=== PATIENT | female | born 1975 | race Caucasian/White ===

== ENCOUNTER 2018-06-14 07:49 | Outpatient (CLI) | payer OTHER ==
--- NOTE | 2018-06-14 12:40 | MRI Report ---
Reason: LOCALIZED SWELLING, MASS AND LUMP, RIGHT UPPER WOLFE Procedure Date: 06/14/2018 Accession Number: [id number] / [id number] Procedure: MRI - Finger(s) RT W/O CPT Code: 02592 FULL RESULT: EXAM: RIGHT THUMB MRI WITHOUT CONTRAST EXAM DATE: 06/14/2018 08:44 AM. CLINICAL HISTORY: Localized swelling/mass. COMPARISON: None. TECHNIQUE: Multiplanar, multisequence T1-weighted and fluid-sensitive sequences of the thumb without contrast. Other: None. FINDINGS: Bones: No fractures or subluxations. No marrow edema. No bone lesions. Cartilage: The articular cartilage is unremarkable. Ligaments: The radial and ulnar collateral ligaments are intact. Tendons: The flexor and extensor tendons are unremarkable. The adductor pollicis insertion is normal. Musculature: No edema or fatty atrophy. Other: No joint effusions or capsular rupture. The marker indicating the site of the palpable abnormality is on the ulnar side of the thumb at the level of the proximal phalanx. No mass is identified in that location on this noncontrast MRI. IMPRESSION: No mass seen on noncontrast MRI. [facility] MUSCULOSKELETAL RADIOLOGY SECTION
== END 2018-06-14 07:50 | disposition home or self-care (01) ==
LOC: DI 07:49
PROVIDERS: ATTEND Orthopaedic Surgery
DX: R22.31 Localized swelling, mass and lump, right upper limb (principal)

== ENCOUNTER 2019-08-01 13:20 | Outpatient (CLI) | payer OTHER ==
[2019-08-01 14:56] VITALS: BP 121/89
--- NOTE | 2019-08-01 14:56 | SLEEP CARE CONSULTATION ---
Information from patient questionnaire entered by Precious Handy. I have reviewed and concur with the information entered by Precious Handy. This document represents the service I personally performed and the decisions made by me, Bethany Negron MD, [facility]. History of Present Illness Reason for Visit: New patient Chief Complaint: reports: Unrefreshed sleep, Snoring, Observed pauses in breathing Duration of Symptoms: 20 years Usual bedtime: 9 pm Time it takes to fall asleep: a few minutes Snores at night: Yes Observed to quit breathing while asleep: Yes Sleeps alone due to snoring: No Number of times waking at night: 1 Reasons for waking at night: reports: Choking (sometimes), Snoring (sometimes), Bathroom Toss, Turn, or Twitch while sleeping: Yes Recalls having dreams: Yes Usually gets out of bed at: 5:45 am Feels refreshed in the morning: No Morning headache: Yes Sleepy or fatigued during the day: Yes Ever fallen asleep while driving: Yes Takes day naps: No Dreams during day naps: No Prior sleep studies: Yes Year and Where: 2008 - [facility] Additional HPI information: I had the pleasure of seeing Ms. Lang today regarding sleep-disordered breathing. As you know, she is a 44 year old lady who was diagnosed with upper airway resistance syndrome here in 2008. The AHI was 3.7. She was prescribed a CPAP device set at 7 cmH2O. She did not tolerate the treatment and quit. She then moved away for several years. She returns today stating that she continues to snore loudly and her sees her quit breathing at night. She wakes up with morning headache that goes away by the time she has her coffee. She is sleepy during the day. Since the sleep study, she has gained almost 30 lbs. - Parasomnia Symptoms Ever been unable to move upon waking from sleep: No Ever felt weak in the knees when startled or emotional: No Bothered by creepy, crawly, restless sensations in legs: Yes Problems with memory or concentration: Yes Subjective Initial [place] Sleepiness Scale score: 17 Current [place] Sleepiness Scale score: 13 Past Medical History Past Medical History: reports: Fibromyalgia, Anxiety, Asthma, GERD, Other (allergies, IBS) Social History The patient's occupation is a [place] [employer]ism[employer]. Patient is and lives in [place]. Have you smoked in the past 12 months: No Alcohol use: Yes Alcohol amount and frequency: 1-2 drinks a couple times a year Caffeine use: Yes Caffeine amount and frequency: 1-2 cups of coffee before 2pm Family History Family history of sleep disordered breathing: Yes Family Hx Sleep Apnea: Mother: Snoring, Father: Snoring Allergies and Home Medications Drug allergies reviewed: Yes Home medication list reviewed: Yes Allergy and home medication list: Current Medications: Zoloft, Zyrtec, Singulair, Neurontin, Nexium, and Vitamin C. Allergies: Biaxin and Percocet Review of Systems Weight gain over past 5 years: 20 Cardiovascular: denies: high blood pressure, palpitations, chest pain, irregular heart rate or pulse, leg or foot swelling, have to sleep sitting up, other Respiratory: denies: shortness of breath, wheeze, sputum production, chronic cough, other Gastrointestinal: reports: heartburn Urinary: denies: incontinence, frequency, urgency, impotence, other Neurological: denies: headaches, seizure, head trauma, disorientation, speech dysfunction, gait or balance problems, fainting or unconsciousness, other Psychiatric: reports: anxiety Ear/Nose/Throat: reports: nasal congestion, sinus problems, dry mouth/throat, wisdom teeth removed Endocrine: reports: sluggishness Musculoskeletal: reports: joint pain, back pain, muscle pain or cramping Immunologic: reports: sneezing, rash, itching, allergies to food or environment Physical Exam Vital signs obtained and entered by: Dr. Negron Blood Pressure: 121/89 Cuff size: regular Heart Rate: 87 O2 Saturation: 96 Height: 5 ft 4 in Weight: 253 lb Body Mass Index: 43.4 BMI Classification: Obesity Class 3 Neck circumference: 17 Mood/affect: normal HEENT: No craniofacial malformation Nostrils: patent to airflow Turbinates: normal Septum: midline Mouth and throat: narrow oropharynx Soft palate: long Hard palate: normal Uvula: normal Uvula visualization: 25% Mallampati Class III Tongue: normal in size Tonsils: small Chin and jaw: normal size and position Neck: normal w/o lymphadenopathy or thyromegaly Heart: regular rate and rhythm Lungs: clear bilaterally Abdomen: soft, non-tender Extremities: no edema or clubbing Neurologic: intact, no focal deficits Impression and Plan IMPRESSION: 1. Obstructive Sleep Apnea-Hypopnea Syndrome, as suggested by history of loud and irregular snoring, observed cessation of breath while asleep, unrefreshed sleep, morning headache, cognitive impairment, and daytime hypersomnolence. Narrow oropharynx and obesity are common predisposing factors for obstructive sleep apnea-hypopnea syndrome. Pathophysiology of sleep-disordered breathing was discussed. I recommend proceeding to polysomnography to confirm the diagnosis and to assess severity. If he has significant sleep disordered breathing, a manual CPAP titration study will also be performed to find the optimal treatment pressure. I informed the patient of what the sleep studies involve and after some discussion, she agreed to proceed. Plan: 1. Schedule polysomnography + manual CPAP titration study and return in 1 to 2 weeks after the study to discuss result and initiate therapy. 2. Avoid long distance driving or when feeling sleepy. 3. Avoid alcohol, sedative and muscle relaxant around bedtime. 4. Attempt to lose weight. I spent 100% of this visit face to face with the patient with greater than 50% of this was spent time counseling the patient and coordination of care.
== END 2019-08-01 13:21 | disposition home or self-care (01) ==
LOC: SC 13:20
PROVIDERS: ATTEND Internal Medicine Pulmonary Disease
DX: R06.83 Snoring (principal); R06.81 Apnea, not elsewhere classified; G47.8 Other sleep disorders; R51 Headache; R41.89 Other symptoms and signs involving cognitive functions and awareness; G47.10 Hypersomnia, unspecified; E66.9 Obesity, unspecified; Z68.41 Body mass index [BMI] 40.0-44.9, adult
CPT/HCPCS: 99203; 99212

== ENCOUNTER 2019-08-14 20:26 | Outpatient (CLI) | payer OTHER | END 2019-08-14 20:27 | disposition home or self-care (01) | LOC: SC 20:26 | PROVIDERS: ATTEND Internal Medicine Pulmonary Disease | DX: G47.33 Obstructive sleep apnea (adult) (pediatric) (principal); E66.9 Obesity, unspecified; Z68.41 Body mass index [BMI] 40.0-44.9, adult | CPT/HCPCS: 95810 ==

== ENCOUNTER 2019-08-15 16:50 | Emergency (ER) | payer OTHER ==
[2019-08-15 17:03] VITALS: BP 120/83
--- NOTE | 2019-08-15 19:27 | ED Physician Documentation ---
PD HPI LOWER EXT INJURY - Stated complaint Stated Complaint: RT LOWER LEG PAIN - Chief complaint Chief Complaint: Trauma Ext - History obtained from History obtained from: Patient - History of Present Illness PD HPI LOW EXT INJURY LOCATION: Right (Stepping down off a box while she was working out about 3:00 today and felt a pop in the back of the right leg and is unable to walk or bear weight. 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, Other - Present Medications Home Medications: Ambulatory Orders Medication Instructions Recorded Confirmed Esomeprazole Magnesium [Nexium 20 mg PO DAILY 08/11/15 08/11/15 24Hr] Gabapentin [Neurontin] 600 mg PO DAILY 08/11/15 08/11/15 HYDROcod/ACETAM 5/325 [[place] 5/325] 1 - 2 ea PO Q6H PRN #15 tablet 08/11/15 Loratadine [Claritin] 10 mg PO DAILY 08/11/15 08/11/15 Montelukast Sodium [Singulair] 10 mg PO DAILY 08/11/15 08/11/15 Sertraline HCl [Zoloft] 50 mg PO DAILY 08/11/15 08/11/15 - Allergies Allergies/Adverse Reactions: Allergies Allergy/AdvReac Type Severity Reaction Status Date / Time acetaminophen [From Tylox] Allergy Hives Verified 08/15/19 17:01 oxycodone HCl * [From Tylox] Allergy Hives Verified 08/15/19 17:01 clarithromycin [From Biaxin] AdvReac Headache Verified 08/15/19 17:01 - Social History Does the pt smoke?: No Smoking Status: Never smoker Does the pt drink ETOH?: No - Immunizations Immunizations are current?: Yes - POLST Patient has POLST: No PD ED PE NORMAL - Vitals Vital signs reviewed: Yes - General General: Alert and oriented X 3, No acute distress - Extremities Extremities: Other (Posterior right calf is tender, no deformity. She is also tender over the Achilles. Titus testing is indeterminate because the calf is too tender to really squeeze and get a result but she is able to plantarflex the toes against resistance. There is no palpable deformity of the Achilles. Compartments in the calf are soft.) - Neuro Neuro: Alert and oriented X 3, Normal speech Results - Vitals Vitals: Vital Signs - 24 hr 08/15/19 17:01 Temperature 36.7 C Heart Rate 81 Respiratory 16 Rate Blood Pressure 120/83 H O2 Saturation 100 Oxygen O2 Source Room air Procedures - Splint (location) RLE Splint applied by: Tech Type of splint: Fiberglass, Short leg, Posterior Other: Patient tolerated well, No complications, Neurovascular intact, Crutches provided PD MEDICAL DECISION MAKING - ED course ED course: Seems like she has a calf strain, less likely a partial Achilles rupture. We will place her in fiberglass in plantarflexion and have her follow-up with orthopedics for further evaluation, nonweightbearing in the interim. Departure - Departure Disposition: 01 Home, Self Care Clinical Impression: Strain of calf muscle Qualifiers: Encounter type: initial encounter Laterality: right Qualified Code(s): S86.811A - Strain of other muscle(s) and tendon(s) at lower leg level, right leg, initial encounter Condition: Good Record reviewed to determine appropriate education?: Yes Instructions: ED Tendon Rupture Achilles, ED Crutch Walking Follow-Up: [facility] [Provider Group] - Within 1 week Comments: As discussed, this seems more like a calf strain than a dozen Achilles rupture, I recommend though out of caution that we treat this as a possible Achilles rupture until you follow-up with the orthopedic surgeon. Call his office in 2 days for an appointment within the week. Keep the splint on and dry until then, keep it elevated. Ibuprofen as needed for pain.
== END 2019-08-15 19:52 | disposition home or self-care (01) ==
LOC: ED 16:50
DX: S86.811A Strain of other muscle(s) and tendon(s) at lower leg level, right leg, initial encounter (principal); X50.9XXA Other and unspecified overexertion or strenuous movements or postures, initial encounter; Y93.89 Activity, other specified
CPT/HCPCS: 29515; 99282

== ENCOUNTER 2019-08-29 14:01 | Outpatient (CLI) | payer OTHER ==
[2019-08-29 14:46] VITALS: BP 130/80
--- NOTE | 2019-08-29 14:46 | SLEEP CARE CONSULTATION ---
Information from patient questionnaire entered by Yoko Young. I have reviewed and concur with the information entered by Yoko Young. This document represents the service I personally performed and the decisions made by me, Sara Madera RN, MSN, [facility]. History of Present Illness Initial [place] Sleepiness Scale score: 17 Current [place] Sleepiness Scale score: 17 Additional HPI information: NAHUM CARRION returns for follow up and results of the recently performed polysomnography. I explained the pathophysiology behind obstructive sleep apnea. We then spent quite a bit of time discussing different treatment options. For mild obstructive sleep apnea, surgery and oral appliance are alternatives to nasal CPAP therapy but in moderate or severe cases, nasal CPAP is the most effective and reliable treatment. . I reviewed the impact of weight changes on sleep apnea and strongly recommended losing weight. After some discussion, the patient opted to go with the nasal CPAP therapy. I will start her on Nasal autoCPAP set at [id number] until a manual titration study can be completed. She was unable to tolerate CPAP 10 years ago due to mask problems. I explained how CPAP machine works with sample devices [employer] Dream[employer] and [employer] [id number] and what to expect when using the machine. Using CPAP every night in order to get used to it was emphasized. Patient advised to put CPAP mask on before getting into bed so as not to fall asleep without CPAP. To assist acclimation to CPAP use, it could also be used for a short time during day while reading or watching TV. The patient was instructed to call the CPAP supplier to discuss any mechanical problem that may occur. If the mask given is uncomfortable or is difficult to keep on through the night even with adjustment, contact the CPAP supplier as many will replace with another mask style if notified before 30 days. If snoring or perceives is not getting enough air or too much air from the machine, notify this office. [facility] patient education PAP tips reviewed and given to patient. Patient counseled not drink alcohol less than 4 hours before bedtime as it can increase snoring and apnea. Patient does not drink alcohol. Patient was cautioned about risks of drowsy driving until sleepiness symptoms resolve. Patient denies drowsy driving. [facility] patient education on snoring and sleep apnea given and reviewed. Sleep Study - Results Polysomnography/Home Sleep Study results: The quality of the study is good. The patient had slightly reduced sleep efficiency due to sleep onset insomnia and frequent awakenings throughout the night. The sleep architecture was abnormal for sleep fragmentation and lack of REM sleep. Respiratory monitoring showed very severe obstructive sleep apneahypopnea (AHI = 78.7) associated with frequent arousals, oxyhemoglobin desaturation and mild hypoxia (belem oxygen saturation of 81%). The respiratory events occurred independently of sleep stage and body position (pereira pine AHI = 100.1; non-supine = 73.59). Snore was very loud in intensity. There was no significant periodic leg movement of sleep. Cardiac rhythm was normal sinus rhythm without significant arrhythmia. No abnormal behavior (parasomnia) observed during the night. Allergies and Home Medications Known drug allergies: Yes (see list ) Home medication list reviewed: Yes (no changes since last visit ) Review of Systems Review of systems same as previous: Yes Physical Exam Blood Pressure: 130/80 Cuff size: long Heart Rate: 93 O2 Saturation: 96 Height: 5 ft 4 in Weight: 250 lb 12.8 oz Body Mass Index: 43.0 BMI Classification: Obesity Class 3 Impression and Plan 1. Obstructive Sleep Apnea-Hypopnea Syndrome, very severe, with lowest oxygen saturation of 81%. Obviously this is the cause of the patients symptoms of unrefreshed sleep, and excessive daytime sleepiness. Positive pressure therapy could benefit her fibromyalgia. As mentioned above, the patient will be started on nasal autoCPAP therapy with pressure set at 4-15 cmH2O until a manual titration study can be completed. Compliance guidelines also reviewed. A copy of compliance guidelines will be given for reference at check out. Because the apnea is more severe supine, I instructed to avoid sleeping supine using pillow positioning and elevate head of bed 30-40 degrees until able to start CPAP use. Due to severity of apnea, I will put an urgent on prescription for CPAP set up. * Nasal auto CPAP therapy, pressure at 4-15 cm H2O. * Schedule manual titration study * Attempt to lose weight. * Avoid alcohol consumption near bedtime. * Avoid supine sleep until using CPAP. * The patient is again cautioned about driving until sleepiness completely resolves. * Return one month after CPAP obtained. I will assess response to therapy and c ompliance at that time. Time Spent with Patient (minutes): 35 I spent 100% of this visit face to face with the patient with greater than 50% of this was spent time counseling the patient and coordination of care.
== END 2019-08-29 14:02 | disposition home or self-care (01) ==
LOC: SC 14:01
PROVIDERS: ATTEND Nurse Practitioner Family
DX: G47.33 Obstructive sleep apnea (adult) (pediatric) (principal)
CPT/HCPCS: 99212; 99214

== ENCOUNTER 2019-09-15 20:24 | Outpatient (CLI) | payer OTHER | END 2019-09-15 20:25 | disposition home or self-care (01) | LOC: SC 20:24 | PROVIDERS: ATTEND Internal Medicine Pulmonary Disease | DX: G47.33 Obstructive sleep apnea (adult) (pediatric) (principal); G47.61 Periodic limb movement disorder | CPT/HCPCS: 95811 ==

== ENCOUNTER 2020-02-19 15:07 | Outpatient (CLI) | payer OTHER ==
[2020-02-19 15:39] VITALS: BP 110/80
--- NOTE | 2020-02-19 15:39 | SLEEP CARE CONSULTATION ---
Information from patient questionnaire entered by Yoko Young. I have reviewed and concur with the information entered by Yoko Young. This document represents the service I personally performed and the decisions made by me, Sara Madera, RN, MSN, ANTIQUE REPAIRER. History of Present Illness Service Date and Time: 02/19/2020 1507 Previous diagnosis: Very Severe, Obstructive Sleep Apnea-Hypopnea Syndrome AHI: 78.7 Reason for follow up: one month (with pressure change) Equipment type: CPAP Equipment obtained from: [employer] (getting supplies as needed.) Mask style: Nasal (N30i) Mask brand: Resmed Backup mask available: Yes (mask from titration study) Last cushion change: 2 weeks ago Prior sleep studies: Yes Year and Where: 2008&2018 [facility] Type of Sleep Study: Polysomnography HPI additional information: The pressure change ti [id number] as recommended by titration study was too much. Thus patient called and pressure was reduced to 4-8 cmH20. There was a delay in her ability to contact office as no answer so I will have her speak to our spring assembler supervisor to clarify her concerns. She was unable to use the CPAP at higher pressure until reduced about 6 days ago. Current pressure of [id number] is comfortable. CPAP Compliance Data - Data Reviewed with Patient Average duration of nightly device use: 8.5 hours past 8 days Compliance rate %: 75 Current pressure setting (cmH2O): 6-12 Humidity setting: ? Heated hose setting: ? Average residual AHI: 9.7 Central apnea: 6.6 Obstructive apnea: 2.5 Hypopnea: 0.6 Subjective Patient concerns: reports: dry mouth, nose, throat (night and day but night worse). denies: aerophagia, mask discomfort, air blowing in eyes, mask leak noise, condensation in mask/hose, nasal congestion, epistaxis Observed to snore while using device: No Current pressure setting perceived as: comfortable On therapy, patient: reports: sleeping better, awakening more refreshed, being more awake and alert during the day, more rested overall. denies: drowsiness while driving Initial [place] Sleepiness Scale score: 17 (in 2009)(13 in 2018) Current [place] Sleepiness Scale score: 13 Allergies and Home Medications Known drug allergies: Yes (see list ) Home medication list reviewed: No (no changes stated) Review of Systems Review of systems same as previous: No Physical Exam Blood Pressure: 110/80 Cuff size: long Heart Rate: 72 O2 Saturation: 98 Height: 5 ft 4 in Weight: 205 lb Body Mass Index: 35.2 BMI Classification: Obese Impression and Plan 1. Obstructive Sleep Apnea-Hypopnea Syndrome, very severe, with good treatment compliance and mild elevation of residual AHI. On CPAP therapy, the patient has better sleep quality and is more rested overall but has residual fatigue. The patients pressure will be changed to autoCPAP 8-12 cmH20 For elevation of residual AHI. Patient advised to contact me if pressure change is uncomfortable so that it can be adjusted. Goals for apnea control discussed. Oral dryness can be reduced by adjusting humidity setting higher or heated hose lower or by adjusting both settings. Verbal instructions given on how to change humidity and heated hose settings with rationale explaining why to change. Oral dryness can also be reduced by reducing mask leaks. Patient advised that chronic oral dryness can affect dental health and advised to follow up with dentist. In addition, there are oral dryness products that can be used to reduce dryness pereira ch as Biotene products, Dry mouth rinse and Xylomelts. Patient to discuss best option with dentist. She has lost weight, 50 pounds since last seen per patient and plans on losing more. BMI has dropped to 35.2. She is aware of risks of obesity. Her current pressure range should accomodate for some weight loss. Symptoms to report for further pressure adjustment discussed. Patient's apnea severity and rationale for treatment to reduce apnea, improve sleep quality and reduce cardiovascular and cerebrovascular events was reviewed. I * * Changeauto CPAP pressure to 8-12 cmH2O * Notify me if snoring with mask or feeling that the pressure is too much or too little * Continue to lose weight * Implement methods to reduce oral dryness. * Call this office if any problems using CPAP * Return for follow up in 1-2 months , or sooner if concerns arise Visit Type: In Office Time Spent with Patient (minutes): 35 Provider Statement: I spent 100% of the Face to Face Visit with the patient with greater than 50% spent counseling the patient and coordination of care.
== END 2020-02-19 15:08 | disposition home or self-care (01) ==
LOC: SC 15:07
PROVIDERS: ATTEND Nurse Practitioner Family
DX: G47.33 Obstructive sleep apnea (adult) (pediatric) (principal); E66.9 Obesity, unspecified; Z68.35 Body mass index [BMI] 35.0-35.9, adult
CPT/HCPCS: 99212; 99214

== ENCOUNTER 2020-02-27 10:57 | Emergency (ER) | payer OTHER ==
[2020-02-27 11:48] LABS: BASOPHILS % (AUTO) 0.7 %; EOSINOPHILS # (AUTO) 0.1 10^3/uL (0.0-0.7); EOSINOPHILS % (AUTO) 1.6 %; LYMPHOCYTES # (AUTO) 1.5 10^3/uL (1.5-3.5); LYMPHOCYTES % (AUTO) 25.2 %; MEAN CORPUSCULAR HEMOGLOBIN 30.5 pg (27.0-31.0); MEAN CORPUSCULAR HGB CONC 31.9 g/dL (32.0-36.0); MEAN CORPUSCULAR VOLUME 95.5 fL (81.0-99.0); MEAN PLATELET VOLUME 12.2 fL (7.9-10.8); MONOCYTES # (AUTO) 0.3 10^3/uL (0.0-1.0); MONOCYTES % (AUTO) 5.4 %; NEUTROPHILS # (AUTO) 4.1 10^3/uL (1.5-6.6); NEUTROPHILS % (AUTO) 66.6 %; PLT - PLATELET COUNT 170 10^3/uL (130-450); RED BLOOD COUNT 4.26 10^6/uL (4.20-5.40); RED CELL DISTRIBUTION WIDTH 13.2 % (12.0-15.0); WHITE BLOOD COUNT 6.1 x10^3/uL (4.8-10.8)
[2020-02-27 11:59] LABS: ALBUMIN 4.8 g/dL (3.2-5.5); ALBUMIN/GLOBULIN RATIO 1.8 (1.0-2.2); BILIRUBIN,TOTAL 0.5 mg/dL (0.2-1.0); CALCIUM 9.4 mg/dL (8.5-10.3); CREATININE 0.8 mg/dL (0.4-1.0); TOTAL PROTEIN 7.5 g/dL (6.7-8.2)
[2020-02-27 12:20] LABS: BILIRUBIN,URINE NEGATIVE (NEGATIVE); CLARITY,URINE HAZY (CLEAR); GLUCOSE, URINE (UA) NEGATIVE (NEGATIVE); KETONES,URINE (UA) NEGATIVE (NEGATIVE); LEUKOCYTE ESTERASE, URINE SMALL (NEGATIVE); NITRITE,URINE NEGATIVE (NEGATIVE); OCCULT BLOOD,URINE NEGATIVE (NEGATIVE); PROTEIN,URINE NEGATIVE (NEGATIVE); UROBILINOGEN,URINE 0.2 (NORMAL) E.U./dL (NORMAL)
--- NOTE | 2020-02-27 12:26 | ED Physician Documentation ---
History of Present Illness - Stated complaint Stated Complaint: R SIDE PX - Chief complaint Chief Complaint: Abd Pain - History of Present Illness Timing: Prior to arrival, How many days ago (4) Pain level max: 10 Pain level now: 5 Worsened by: standing Associated symptoms: nausea - Additonal information Additional information: 44-year-old female presents to the emergency department with chief complaint of 4 to 5 days sudden onset right lower quadrant abdominal pain.Patient reports that the pain began 5 days ago and was severe throughout the day but then lessened and since then has come and gone. However over the last 8 to 12 hours it has been persistent.She does have a history of previous ovarian cysts and this does feel similar. She denies any urinary symptoms, urinary urgency or frequency. She has had no fevers. She endorses nausea but no vomiting. No diarrhea. No cough or congestion. Otherwise appears well. She declines analgesia at this time as she drove herself to the emergency department. Past surgical history most significant for C-sections, cholecystectomy, and surgery for ovarian cysts. Review of Systems Constitutional: denies: Fever, Chills Cardiac: denies: Chest pain / pressure, Palpitations Respiratory: denies: Dyspnea, Cough GI: reports: Abdominal Pain, Nausea. denies: Vomiting, Constipation, Diarrhea, Hematemesis, Bloody / black stool : reports: LMP (IUD in place). denies: Dysuria, Frequency, Hesitancy Skin: denies: Rash, Lesions Musculoskeletal: reports: Back pain. 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, Other - Present Medications Home Medications: Ambulatory Orders Medication Instructions Recorded Confirmed Esomeprazole Magnesium [Nexium 20 mg PO DAILY 08/11/15 08/11/15 24Hr] Gabapentin [Neurontin] 600 mg PO DAILY 08/11/15 08/11/15 HYDROcod/ACETAM 5/325 [[place] 5/325] 1 - 2 ea PO Q6H PRN #15 tablet 08/11/15 Loratadine [Claritin] 10 mg PO DAILY 08/11/15 08/11/15 Montelukast Sodium [Singulair] 10 mg PO DAILY 08/11/15 08/11/15 Sertraline HCl [Zoloft] 50 mg PO DAILY 08/11/15 08/11/15 Amox/Clav 875/125 [Augmentin] 1 each PO Q12H #20 tablet 02/27/20 - Allergies Allergies/Adverse Reactions: Allergies Allergy/AdvReac Type Severity Reaction Status Date / Time acetaminophen [From Tylox] Allergy Hives Verified 08/15/19 17:01 oxycodone HCl * [From Tylox] Allergy Hives Verified 08/15/19 17:01 clarithromycin [From Biaxin] AdvReac Headache Verified 08/15/19 17:01 - Social History Does the pt smoke?: No Smoking Status: Never smoker Does the pt drink ETOH?: No - Immunizations Immunizations are current?: Yes - POLST Patient has POLST: No PD ED PE NORMAL - General General: Alert and oriented X 3, No acute distress, Well developed/nourished - Cardiac Cardiac: RRR, No murmur - Respiratory Respiratory: No respiratory distress - Abdomen Abdomen: Normal bowel sounds, Soft. No: Non tender (Tenderness in the right lower quadrant without guarding or rebound. Negative McBurney's.) - Back Back: No: No CVA TTP, No spinal TTP - Derm Derm: No: Normal color, No rash - Extremities Extremities: No: No deformity, No tenderness to palpate, Normal ROM s pain Results - Vitals Vitals: Vital Signs - 24 hr 02/27/20 02/27/20 11:14 12:13 Temperature 36.7 C Heart Rate 84 79 Respiratory 16 18 Rate Blood Pressure 128/74 125/85 H O2 Saturation 100 99 Oxygen O2 Source Room air - Labs Labs: Laboratory Tests 02/27/20 02/27/20 02/27/20 11:40 11:40 12:05 WBC 6.1 RBC 4.26 Hgb 13.0 Hct 40.7 MCV 95.5 MCH 30.5 MCHC 31.9 L RDW 13.2 Plt Count 170 MPV 12.2 H Neut # (Auto) 4.1 Lymph # (Auto) 1.5 Luce # (Auto) 0.3 Eos # (Auto) 0.1 Baso # (Auto) 0.0 Absolute Nucleated RBC 0.00 Nucleated RBC % 0.0 Sodium 138 Potassium 4.1 Chloride 102 Carbon Dioxide 26 Anion Gap 10.0 BUN 28 H Creatinine 0.8 Estimated GFR (MDRD) 78 L Glucose 95 Calcium 9.4 Total Bilirubin 0.5 AST 10 ALT 13 Alkaline Phosphatase 28 L Total Protein 7.5 Albumin 4.8 Globulin 2.7 Albumin/Globulin Ratio 1.8 Lipase 41 Urine Color YELLOW Urine Clarity HAZY Urine pH 7.0 Ur Specific [place] 1.015 Urine Protein NEGATIVE Urine Glucose (UA) NEGATIVE Urine Ketones NEGATIVE Urine Occult Blood NEGATIVE Urine Nitrite NEGATIVE Urine Bilirubin NEGATIVE Urine Urobilinogen 0.2 (NORMAL) Ur Leukocyte Esterase SMALL H Urine RBC 0-5 Urine WBC 6-10 H Ur Squamous Epith Cells MANY Squamous H Urine Bacteria Rare Ur Microscopic Review INDICATED Urine Culture Comments NOT INDICATED - Rads (name of study) CT abdomen Radiology: Final report received (Finding is suggestive of very mild infectious or inflammatory enteritis with mild mid to distal small bowel wall thickening. No obstruction. Normal-appearing appendix. No free fluid or free air. IUD is in its normal endometrial location.) PD MEDICAL DECISION MAKING - ED course Complexity details: reviewed results, re-evaluated patient, d/w patient, d/w family ED course: 44-year-old female presents the emergency department with 4 to 5 days of persistent right lower quadrant abdominal pain. - Differentials considered but not excluded to include acute appendix UTI enteritis cholecystitis bowel obstruction, or renal lithiasis - Urine not consistent with infection the rest of the serum labs show no worrisome findings such as significant leukocytosis. - CT of the abdomen shows a likely inflammatory or infectious enteritis in the small bowel. Will prescribe a short course of antibiotics. Patient advised to follow-up closely with her primary care doctor. - On reexam she is only mildly tender at this time and she desires further discharge home. Departure - Departure Disposition: 01 Home, Self Care Clinical Impression: RLQ abdominal pain, Enteritis Condition: Stable Instructions: Abdominal Pain Follow-Up: Kimmy Sheets MD [Primary Care Provider] - Prescriptions: Amox/Clav 875/125 [Augmentin] 1 each PO Q12H #20 tablet Comments: I hope that you are feeling better soon the CT scan of your abdomen showed that your appendix and your ovaries are normal. However there is some inflammation in your small intestine. Let us take the course of Augmentin as prescribed. Your pain is worsening, you have fevers, uncontrolled vomiting or bloody stools then please return immediately for a second evaluation
[2020-02-27 12:33] LABS: BACTERIA,URINE Rare /HPF (None Seen); RBC,URINE 0-5 /HPF (0-5); SQUAMOUS EPITHELIAL CELL,UR MANY Squamous (<= Few)
[2020-02-27] MEDS ORDERED: SODIUM CHLORIDE 0.9% 1,000 ML IV STA (12:42)
[2020-02-27] MEDS ORDERED: IOVERSOL 320 100 ML VIAL IVP ONE ×2 (12:54→13:09)
--- NOTE | 2020-02-27 13:03 | XRAY Report ---
PROCEDURE: Chest 1 View X-Ray INDICATIONS: chest pain TECHNIQUE: One view of the chest was acquired. COMPARISON: None FINDINGS: Surgical changes and devices: None. Lungs and pleura: No pleural effusions or pneumothorax. Lungs are clear. Mediastinum: Mediastinal contours appear normal. Heart size is normal. Bones and chest wall: No suspicious bony lesions. Overlying soft tissues appear unremarkable. IMPRESSION: No acute pulmonary process. Reviewed by: Gabby Kimball MD on 02/27/2020 1:02 PM PDT Approved by: Gabby Kimball MD on 02/27/2020 1:02 PM PDT Station ID: [id number]
--- NOTE | 2020-02-27 13:58 | CT Report ---
PROCEDURE: Abdomen/Pelvis W INDICATIONS: RLQ pain; eval for ovarian torsion vs appy CONTRAST: IV CONTRAST: Optiray 320 ml: 100 PO CONTRAST: *NO PO CONTRAST TECHNIQUE: After the administration of oral and intravenous contrast, 5 mm thick sections acquired from the diap hragms to the symphysis. 5 mm thick coronal and sagittal reformats were acquired. For radiation dos e reduction, the following was used: automated exposure control, adjustment of mA and/or kV accordin g to patient size. COMPARISON: 08/11/2015. FINDINGS: Image quality: Excellent. ABDOMEN: Lung bases: Mild bibasilar dependent atelectasis is seen. Heart size is normal. Solid organs: Liver and spleen are normal in size and enhancement. Gallbladder is surgically absent Biliary system is non dilated. Pancreas enhances normally. No adrenal nodules. Kidneys demonstra te normal size and enhancement, without hydronephrosis. Peritoneum and bowel: There is no bowel obstruction. Appendix is visualized in midline of lower abdom en at the level of aortic bifurcation and is normal in size and appearance. There is mild small bowel wall thickening is seen predominantly involving mid to distal small bowel loops concerning for low-g rade enteritis. No other area of abnormal bowel wall thickening. No free fluid or free air. No mesent delfino fat stranding. Nodes and vessels: No retroperitoneal or mesenteric adenopathy by size criteria. Aorta and inferior vena cava are normal in size. Miscellaneous: No ventral hernias. PELVIS: Genitourinary: Bladder wall thickness is normal. Miscellaneous: No inguinal hernias or adenopathy. Intrauterine device is noted in its normal centra l endometrial location. Bilateral ovaries are within normal limits. Bones: No suspicious bony lesions. No vertebral body compression fractures. IMPRESSION: 1. Finding is suggestive of very mild infectious or inflammatory enteritis with mild mid to distal sm all bowel wall thickening. 2. No bowel obstruction. Normal-appearing appendix. No free fluid or free air. 3. Intrauterine device in its normal central endometrial location. Reviewed by: Rell Adam MD on 02/27/2020 1:57 PM PDT Approved by: Rell Adam MD on 02/27/2020 1:57 PM PDT Station ID: [id number]
[2020-02-27 14:28] VITALS: BP 123/83
== END 2020-02-27 14:31 | disposition home or self-care (01) ==
LOC: ED 10:57
DX: K52.9 Noninfective gastroenteritis and colitis, unspecified (principal); Z97.5 Presence of (intrauterine) contraceptive device
CPT/HCPCS: 36415; 71045; 74177; 80053; 81001; 83690; 85025; 96360; 96361; 99284; Q9967; 81003; 83605; 84484; 87086

== ENCOUNTER 2020-04-05 20:32 | Emergency (ER) | payer OTHER ==
[2020-04-05] MEDS ORDERED: predniSONE 20 MG TABLET PO STA (21:24)
[2020-04-05] MEDS ORDERED: hydrOXYzine PAMOATE 25 MG CAPSULE PO STA (21:24)
[2020-04-05] MEDS ORDERED: FAMOTIDINE 20 MG TABLET PO STA (21:24)
[2020-04-05 21:36] VITALS: BP 133/84
--- NOTE | 2020-04-05 22:09 | ED Physician Documentation ---
PD HPI SKIN - Stated complaint Stated Complaint: HIVES - Chief complaint Chief Complaint: Allergic Rx - History obtained from History obtained from: Patient - History of Present Illness Timing - onset: Yesterday Timing - details: Gradual onset, Constant, Waxing and waning Pain level max: 0 Pain level now: 0 Location: Bodywide Quality / character: Itchy Improved by: Other (has taken several doses diphenydramine without improvement) Associated symptoms: No: Fever, Myalgias, Joint pain, Headache, Facial swelling, Dyspnea, Abd pain, N/V/D Contributing factors: Exposed to soap / lotion (used new detergent starting yesterday) Similar symptoms before: Has not had sx before Recently seen: Not recently seen - Additional information Additional information: c/o diffuse pruritic rash, appears/fades in different areas at different times since onset yesterday. She suspects it is due to use of a new laundry detergent she began using yesterday. Has taken several doses of benadryl without relief. Denies h/o similar symptoms. She says she recalls having hallucinations with use of prednisone in the past, although this was when she was a teenager and she does not recall the dose. Denies having dyspnea or oral/perioral swelling. 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, Other - Present Medications Home Medications: Ambulatory Orders Medication Instructions Recorded Confirmed Esomeprazole Magnesium [Nexium 20 mg PO DAILY 08/11/15 08/11/15 24Hr] Gabapentin [Neurontin] 600 mg PO DAILY 08/11/15 08/11/15 HYDROcod/ACETAM 5/325 [[place] 5/325] 1 - 2 ea PO Q6H PRN #15 tablet 08/11/15 Loratadine [Claritin] 10 mg PO DAILY 08/11/15 08/11/15 Montelukast Sodium [Singulair] 10 mg PO DAILY 08/11/15 08/11/15 Sertraline HCl [Zoloft] 50 mg PO DAILY 08/11/15 08/11/15 Amox/Clav 875/125 [Augmentin] 1 each PO Q12H #20 tablet 02/27/20 hydrOXYzine pamoate [Hydroxyzine 25 - 50 mg PO Q6HR PRN #20 capsule 04/05/20 Pamoate] predniSONE [Prednisone] 20 mg PO DAILY #3 tablet 04/05/20 - Allergies Allergies/Adverse Reactions: Allergies Allergy/AdvReac Type Severity Reaction Status Date / Time acetaminophen [From Tylox] Allergy Hives Verified 04/05/20 20:39 oxycodone HCl * [From Tylox] Allergy Hives Verified 04/05/20 20:39 clarithromycin [From Biaxin] AdvReac Headache Verified 04/05/20 20:39 - Social History Does the pt smoke?: No Smoking Status: Never smoker Does the pt drink ETOH?: No - Immunizations Immunizations are current?: Yes - POLST Patient has POLST: No PD ED PE NORMAL - Vitals Vital signs reviewed: Yes - General General: Alert and oriented X 3, No acute distress, Well developed/nourished - HEENT HEENT: Pharynx benign (no oral/perioral edema, airway widely patent) - Respiratory Respiratory: No respiratory distress, Clear bilaterally PD ED PE EXPANDED - Derm Derm: Urticaria (patches of urticaria on back, chest, BLE) Results - Vitals Vitals: Vital Signs - 24 hr 04/05/20 21:35 Heart Rate 84 Respiratory 16 Rate Blood Pressure 133/84 H O2 Saturation 98 Oxygen O2 Source Room air PD MEDICAL DECISION MAKING - ED course Complexity details: considered differential, d/w patient Departure - Departure Disposition: 01 Home, Self Care Clinical Impression: Hives Condition: Good Instructions: ED Allergic Reaction General Other Follow-Up: Kimmy Sheets MD [Primary Care Provider] - Prescriptions: hydrOXYzine pamoate [Hydroxyzine Pamoate] 25 - 50 mg PO Q6HR PRN #20 capsule PRN Reason: Itching predniSONE [Prednisone] 20 mg PO DAILY #3 tablet Discharge Date/Time: 04/05/20 21:35
== END 2020-04-05 21:35 | disposition home or self-care (01) ==
LOC: ED 20:32
DX: L50.9 Urticaria, unspecified (principal)
CPT/HCPCS: 99282; 99283; A9270; J7512

== ENCOUNTER 2020-05-06 15:03 | Outpatient (CLI) | payer OTHER ==
[2020-05-06 16:25] VITALS: BP 112/70
--- NOTE | 2020-05-06 16:25 | SLEEP CARE CONSULTATION ---
Information from patient questionnaire entered by Philippe Duron. I have reviewed and concur with the information entered by Philippe Duron. This document represents the service I personally performed and the decisions made by me, Saar Madera, RN, MSN, DRY ROOM ATTENDANT. History of Present Illness Service Date and Time: 05/06/2020 1503 Previous diagnosis: Very Severe, Obstructive Sleep Apnea-Hypopnea Syndrome AHI: 78.7 Reason for follow up: other (2-month followup) Equipment type: CPAP Equipment obtained from: [facility] (getting supplies as needed) Mask style: Nasal Backup mask available: Yes (old mask ) Last cushion change: 1 week ago Prior sleep studies: Yes Year and Where: 2008&2018 [facility] Type of Sleep Study: Polysomnography Sleep Study - Results Prior sleep studies: Yes Year and Where: 2008&2018 [facility] CPAP Compliance Data - Data Reviewed with Patient Average duration of nightly device use: 7 h 9 min Compliance rate %: 83 Current pressure setting (cmH2O): 8-12 Average residual AHI: 7.0 (mean 9.1cmH20 / 95th% 10.6cmH20) Central apnea: 5.1 Obstructive apnea: 1.5 Hypopnea: 0.1 Average large leak: 0.9 liters per minute On Oxygen: Yes Subjective Missed days of use due to: reports: illness Patient concerns: reports: dry mouth, nose, throat (dry mouth that she wonders is due to oral venting- severe ). denies: aerophagia, mask discomfort, air blowing in eyes, mask leak noise, condensation in mask/hose, nasal congestion, epistaxis Observed to snore while using device: No Current pressure setting perceived as: comfortable On therapy, patient: reports: sleeping better, awakening more refreshed, being more awake and alert during the day, more rested overall. denies: drowsiness while driving Initial [place] Sleepiness Scale score: 17 (in 2009)(13 in 2019) Current [place] Sleepiness Scale score: 13 Allergies and Home Medications Known drug allergies: Yes Home medication list reviewed: No (no changes ) Review of Systems Review of systems same as previous: Yes Physical Exam Blood Pressure: 112/70 Cuff size: long Heart Rate: 80 O2 Saturation: 98 Height: 5 ft 4 in Weight: 195 lb Weight change since last visit: lost 10 pounds - new goal is to lose 60 more pounds of 135 Body Mass Index: 33.5 BMI Classification: Obese Impression and Plan 1. Obstructive Sleep Apnea-Hypopnea Syndrome, very severe, with good treatment compliance and mild elevation of residual AHI. On CPAP therapy, the patient has better sleep quality and is more rested overall. Patient has continued to lose weight with new goal of losing 60 more pounds to 135 weight which would bring her BMI to normal range. She is using a Code Red diet and follows up with her PCP. I will adjust her autoCPAP slightly for elevation of residual AHI. She will contact me if residual AHI continues above 5. Since she is losing about 2 pounds a week, I do not want to raise pressure range too high. I will order a chinstrap fitting for oral venting and dryness. She is also to adjust her humidity and heated hose again with rationale discussed. Patient's apnea severity and rationale for treatment to reduce apnea, improve sleep quality and reduce cardiovascular and cerebrovascular events was reviewed. Because patient has significant apnea in all positions of sleep, if unable to use CPAP due to illness of lack of electricity, patient advised to raise head of bed 30-40 degrees to decrease some apnea risk. * * Change auto CPAP pressure to 9-11 cmH2O * chin strap fitting * Implement methods to reduce oral dryness. * Notify me if snoring with mask or feeling that the pressure is too much or too little * Continue to lose weight * Call this office if any problems using CPAP * Return for follow up in 1- 2 months , or sooner if concerns arise Visit Type: In Office Time Spent with Patient (minutes): 30 Provider Statement: I spent 100% of the Face to Face Visit with the patient with greater than 50% spent counseling the patient and coordination of care.
== END 2020-05-06 15:04 | disposition home or self-care (01) ==
LOC: SC 15:03
PROVIDERS: ATTEND Nurse Practitioner Family
DX: G47.33 Obstructive sleep apnea (adult) (pediatric) (principal); E66.9 Obesity, unspecified; Z68.33 Body mass index [BMI] 33.0-33.9, adult
CPT/HCPCS: 99212; 99214

== ENCOUNTER 2020-07-24 16:40 | Outpatient (CLI) | payer OTHER ==
--- NOTE | 2020-07-24 17:18 | SLEEP CARE CONSULTATION ---
Information from patient questionnaire entered by Philippe Duron. I have reviewed and concur with the information entered by Philippe Duron. This document represents the service I personally performed and the decisions made by me, Pam Arias ARNP. History of Present Illness Service Date and Time: 07/24/2020 1640 Previous diagnosis: Very Severe, Obstructive Sleep Apnea-Hypopnea Syndrome AHI: 78.7 Reason for follow up: other (2-month followup) Equipment type: CPAP Equipment obtained from: [facility] (getting supplies as needed) Mask style: Nasal (nasal cushion) Backup mask available: Yes (old mask) Last cushion change: 1 week ago Prior sleep studies: Yes Year and Where: 2008&2018 [facility] additional information: NAHUM CARRION was diagnosed to have very severe, AHI 78.7, obstructive sleep apnea-hypopnea syndrome and returned today for CPAP therapy two month follow-up. Sleep Study - Results Prior sleep studies: Yes Year and Where: 2008&2018 [facility] CPAP Compliance Data - Data Reviewed with Patient Average duration of nightly device use: 6 h 43 min Compliance rate %: 67 Current pressure setting (cmH2O): 9-11 Average residual AHI: 5.8 Central apnea: 4.9 Obstructive apnea: 0.7 Subjective Missed days of use due to: reports: mask issues, illness, other (stopped medication that affects sleep and is having withdrawls, anxiety) Patient concerns: reports: aerophagia, dry mouth, nose, throat. denies: mask discomfort, air blowing in eyes, mask leak noise, condensation in mask/hose, nasal congestion, epistaxis, other Observed to snore while using device: No Current pressure setting perceived as: too high On therapy, patient: reports: sleeping better, awakening more refreshed, being more awake and alert during the day, more rested overall. denies: drowsiness while driving Initial [place] Sleepiness Scale score: 17 (in 2008)(13 in 2019) Current [place] Sleepiness Scale score: 11 Allergies and Home Medications Drug allergies reviewed: Yes (oxycodone, clarithromycin) Home medication list reviewed: Yes (stopped Neurontin) Review of Systems Review of systems same as previous: Yes (no changes) Physical Exam Heart Rate: 68 O2 Saturation: 99 Height: 5 ft 4 in Weight: 187 lb Body Mass Index: 32.1 BMI Classification: Obese Impression and Plan 1. Obstructive Sleep Apnea-Hypopnea Syndrome, very severe, with fair treatment compliance and fair apnea control with slight elevation of residual AHI. Patient has had some aerophagia in the mornings. The patients pressure will be changed to autoCPAP 8-10 cmH20 for elevation of residual AHI and aerophagia. Patient advised to contact me if pressure change is uncomfortable so that it can be adjusted. Goals for apnea control discussed. On CPAP therapy, the patient has better sleep quality and is more rested overall. Patient has lost 87 pounds over last year on Code Red diet. She feels the nasal cushion mask is not fitting well since she has lost weight. I advised her to call her DME and ask for a smaller size mask in the same style she is using. Patient's apnea severity and rationale for treatment to reduce apnea, improve sleep quality and reduce cardiovascular and cerebrovascular events was reviewed. I also reviewed the benefit of consistent device use of CPAP for fibromyalgia, gastric reflux, asthma and anxiety. * Change autoCPAP pressure to 8-10 cmH2O * Request a smaller size mask from the DME * Notify me if snoring with mask or feeling that the pressure is too much or too little * Attempt to lose weight * Call this office if any problems using CPAP * Return for follow up in 1-2 months, or sooner if concerns arise Counseling Topics: Spare mask, Weight loss health impact Visit Type: In Office Time Spent with Patient (minutes): 20 Provider Statement: I spent 100% of the Face to Face Visit with the patient with greater than 50% spent counseling the patient and coordination of care.
== END 2020-07-24 16:41 | disposition home or self-care (01) ==
LOC: SC 16:40
PROVIDERS: ATTEND Nurse Practitioner Family
DX: G47.33 Obstructive sleep apnea (adult) (pediatric) (principal); E66.9 Obesity, unspecified; Z68.32 Body mass index [BMI] 32.0-32.9, adult
CPT/HCPCS: 99212; 99213

== ENCOUNTER 2020-09-03 15:01 | Outpatient (CLI) | payer OTHER ==
--- NOTE | 2020-09-03 15:37 | SLEEP CARE CONSULTATION ---
Information from patient questionnaire entered by Philippe Duron. I have reviewed and concur with the information entered by Philippe Duron. This document represents the service I personally performed and the decisions made by me, Pam Arias ARNP. History of Present Illness Service Date and Time: 09/03/2020 1501 Previous diagnosis: Very Severe, Obstructive Sleep Apnea-Hypopnea Syndrome AHI: 78.7 Reason for follow up: other (6-week followup - pressure change) Equipment type: CPAP Equipment obtained from: [employer] (getting supplies as needed) Mask style: Nasal Backup mask available: Yes (old mask) Last cushion change: 3-4 days ago Prior sleep studies: Yes Year and Where: 2008&2018 [facility] additional information: NAHUM CARRION was diagnosed to have very severe, AHI 78.7, obstructive sleep apnea-hypopnea syndrome and returned today for CPAP therapy 6 week pressure change follow-up. CPAP Compliance Data - Data Reviewed with Patient Average duration of nightly device use: 7 h 41 min Compliance rate %: 70 Current pressure setting (cmH2O): 8-10 Average residual AHI: 5.8 Central apnea: 5.0 Obstructive apnea: 0.5 Subjective Patient concerns: reports: dry mouth, nose, throat (dry mouth, has adjusted setting). denies: aerophagia, mask discomfort, air blowing in eyes, mask leak noise, condensation in mask/hose, nasal congestion, epistaxis, other Observed to snore while using device: No Current pressure setting perceived as: comfortable On therapy, patient: reports: sleeping better, awakening more refreshed, being more awake and alert during the day, more rested overall. denies: drowsiness while driving Initial [place] Sleepiness Scale score: 17 (in 2009)(13 in 2019) Current [place] Sleepiness Scale score: 10 Allergies and Home Medications Home medication list reviewed: Yes (no changes) Review of Systems Review of systems same as previous: Yes (no changes) Physical Exam Heart Rate: 75 O2 Saturation: 98 Height: 5 ft 4 in Weight: 185 lb Body Mass Index: 31.7 BMI Classification: Obese Impression and Plan 1. Obstructive Sleep Apnea-Hypopnea Syndrome, very severe, with fair treatment compliance and fair apnea control with minimal elevation of residual AHI. On CPAP therapy, the patient has better sleep quality and is more rested overall. The patients pressure will be changed to autoCPAP 6-10 cmH20 for elevation of residual central AHI. Patient advised to contact me if pressure change is uncomfortable so that it can be adjusted. Goals for apnea control discussed. She voiced understanding. Patient's apnea severity and rationale for treatment to reduce apnea, improve sleep quality and reduce cardiovascular and cerebrovascular events was reviewed. I also reviewed the benefit of consistent device use of CPAP for fibromyalgia, asthma, gastric reflux, and anxiety. * Change auto CPAP pressure to 6-10 cmH2O * Notify me if snoring with mask or feeling that the pressure is too much or too little * Call this office if any problems using CPAP * Return for follow up in 1-2 months, or sooner if concerns arise Counseling Topics: Spare mask Visit Type: In Office Time Spent with Patient (minutes): 20 Provider Statement: I spent 100% of the Face to Face Visit with the patient with greater than 50% spent counseling the patient and coordination of care.
== END 2020-09-03 15:02 | disposition home or self-care (01) ==
LOC: SC 15:01
PROVIDERS: ATTEND Nurse Practitioner Family
DX: G47.33 Obstructive sleep apnea (adult) (pediatric) (principal); E66.9 Obesity, unspecified; Z68.31 Body mass index [BMI] 31.0-31.9, adult
CPT/HCPCS: 99212; 99213

== ENCOUNTER 2020-11-06 14:44 | Outpatient (CLI) | payer OTHER ==
--- NOTE | 2020-11-06 15:04 | SLEEP CARE CONSULTATION ---
Information from patient questionnaire entered by Philippe Duron. I have reviewed and concur with the information entered by Philippe Duron. This document represents the service I personally performed and the decisions made by me, Pam Arias ARNP. History of Present Illness Service Date and Time: 11/06/2020 1444 Previous diagnosis: Very Severe, Obstructive Sleep Apnea-Hypopnea Syndrome AHI: 78.7 Reason for follow up: other (2-month followup - pressure change) Equipment type: CPAP Equipment obtained from: [email or web address] (getting supplies as needed) Mask style: Nasal Backup mask available: Yes (old mask) Last cushion change: 2 weeks ago Prior sleep studies: Yes Year and Where: 2008&2018 [facility] additional information: NAHUM CARRION was diagnosed to have very severe, AHI 78.7, obstructive sleep apnea-hypopnea syndrome and returned today for CPAP therapy two month pressure change follow-up. CPAP Compliance Data - Data Reviewed with Patient Average duration of nightly device use: 7 h 48 min Compliance rate %: 58 Current pressure setting (cmH2O): 6-10 Average residual AHI: 5.0 Central apnea: 3.8 Obstructive apnea: 0.9 Subjective Missed days of use due to: reports: mask issues, travel Patient concerns: reports: other (Raw skin on nose where mask sits). denies: aerophagia, mask discomfort, air blowing in eyes, mask leak noise, condensation in mask/hose, nasal congestion, dry mouth, nose, throat, epistaxis Observed to snore while using device: No Current pressure setting perceived as: comfortable On therapy, patient: reports: sleeping better, awakening more refreshed, being more awake and alert during the day, more rested overall. denies: drowsiness while driving Initial [place] Sleepiness Scale score: 17 (in 2009)(13 in 2019) Current [place] Sleepiness Scale score: 8 Allergies and Home Medications Home medication list reviewed: Yes (no new meds) Review of Systems Review of systems same as previous: Yes (no changes) Physical Exam Heart Rate: 83 O2 Saturation: 98 Height: 5 ft 4 in Weight: 184 lb Body Mass Index: 31.6 BMI Classification: Obese Impression and Plan 1. Obstructive Sleep Apnea-Hypopnea Syndrome, very severe, with fair treatment compliance and fair apnea control. On CPAP therapy, the patient has better sleep quality and is more rested overall. She has missed days using the CPAP due to skin soreness under her nose from the mask. She has not been washing her mask daily. I advised her to wash the mask daily to reduce skin oils and dirt that buildup that can cause skin irritation. She should be able to use more with the irritation resolving and increase her CPAP use. She voiced understanding. She feels the pressure is comfortable and not changes will be made as she has adequate apnea control. I will have her follow up to recheck her compliance in about a month or so. Patient's apnea severity and rationale for treatment to reduce apnea, improve sleep quality and reduce cardiovascular and cerebrovascular events was reviewed. I also reviewed the benefit of consistent device use of CPAP for gastric reflux, depression/anxiety and fibromyalgia. * Continue autoCPAP pressure at 6-10 cmH2O * Notify me if snoring with mask or feeling that the pressure is too much or too little * Attempt to lose weight * Call this office if any problems using CPAP * Return for follow up in 1-2 months, or sooner if concerns arise Counseling Topics: Spare mask, Weight loss health impact Visit Type: In Office Time Spent with Patient (minutes): 16 Provider Statement: I spent 100% of the Face to Face Visit with the patient with greater than 50% spent counseling the patient and coordination of care.
== END 2020-11-06 14:45 | disposition home or self-care (01) ==
LOC: SC 14:44
PROVIDERS: ATTEND Nurse Practitioner Family
DX: G47.33 Obstructive sleep apnea (adult) (pediatric) (principal); E66.9 Obesity, unspecified; Z68.31 Body mass index [BMI] 31.0-31.9, adult
CPT/HCPCS: 99212

== ENCOUNTER 2020-12-17 14:41 | Outpatient (CLI) | payer OTHER ==
--- NOTE | 2020-12-17 15:19 | SLEEP CARE CONSULTATION ---
Information from patient questionnaire entered by Philippe Duron. I have reviewed and concur with the information entered by Philippe Duron. This document represents the service I personally performed and the decisions made by me, Pam Arias ARNP. History of Present Illness Service Date and Time: 12/17/2020 1441 Previous diagnosis: Very Severe, Obstructive Sleep Apnea-Hypopnea Syndrome AHI: 78.7 ((in 2019) Equipment type: CPAP Equipment obtained from: [email or web address] (getting supplies as needed) Mask style: Nasal Backup mask available: Yes (old mask) Last cushion change: 3 weeks Prior sleep studies: Yes Year and Where: 2008 & 2018 [facility] Type of Sleep Study: Polysomnography HPI additional information: NAHUM CARRION was diagnosed to have very severe, AHI 78.7, obstructive sleep apnea-hypopnea syndrome and returned today for CPAP therapy 6 week follow-up. CPAP Compliance Data - Data Reviewed with Patient Average duration of nightly device use: 8 h 3 min Compliance rate %: 57 Current pressure setting (cmH2O): 6-10 Average residual AHI: 4.3 Subjective Missed days of use due to: reports: family emergency (lost 1 week), travel Patient concerns: denies: aerophagia, mask discomfort, air blowing in eyes, mask leak noise, condensation in mask/hose, nasal congestion, dry mouth, nose, throat, epistaxis, other Observed to snore while using device: No Current pressure setting perceived as: comfortable On therapy, patient: reports: sleeping better, awakening more refreshed, being more awake and alert during the day, more rested overall. denies: drowsiness while driving Initial [place] Sleepiness Scale score: 17 (in 2009)(13 in 2019) Current [place] Sleepiness Scale score: 8 Allergies and Home Medications Home medication list reviewed: Yes (no changes) Review of Systems Review of systems same as previous: Yes (no changes) Physical Exam Heart Rate: 85 O2 Saturation: 98 Height: 5 ft 4 in Weight: 188 lb Body Mass Index: 32.2 BMI Classification: Obese Impression and Plan 1. Obstructive Sleep Apnea-Hypopnea Syndrome, very severe, with fair treatment compliance and good apnea control. On CPAP therapy, the patient has better sleep quality and is more rested overall. She has significant improvement of her sleep apnea and is satisfied with her treatment. She missed some days of use due to a family emergency where she was gone for a week and did not take her machine. She also went on a week vacation without use of her machine. I advised her to take her machine when possible to keep up her compliance. Compliance guidelines reviewed for insurance coverage. Optimal use of CPAP is use of CPAP with all sleep to obtain maximum benefit of treatment. Patient is encouraged to use CPAP with all sleep. I will follow up in about a month to recheck compliance. Patient's apnea severity and rationale for treatment to reduce apnea, improve sleep quality and reduce cardiovascular and cerebrovascular events was reviewed. I also reviewed the benefit of consistent device use of CPAP for gastric reflux, depression/anxiety, and fibromyalgia. * Continue auto CPAP pressure at 6-10 cmH2O * Notify me if snoring with mask or feeling that the pressure is too much or too little * Attempt to lose weight * Call this office if any problems using CPAP * Return for follow up in 1-2 months, or sooner if concerns arise Counseling Topics: Spare mask, Weight loss health impact Visit Type: In Office Time Spent with Patient (minutes): 11 Provider Statement: I spent 100% of the Face to Face Visit with the patient with greater than 50% spent counseling the patient and coordination of care.
== END 2020-12-17 14:42 | disposition home or self-care (01) ==
LOC: SC 14:41
PROVIDERS: ATTEND Nurse Practitioner Family
DX: G47.33 Obstructive sleep apnea (adult) (pediatric) (principal); E66.9 Obesity, unspecified; Z68.32 Body mass index [BMI] 32.0-32.9, adult
CPT/HCPCS: 99212

== ENCOUNTER 2021-01-17 15:22 | Outpatient (CLI) | payer OTHER ==
--- NOTE | 2021-01-17 15:40 | SLEEP CARE CONSULTATION ---
Information from patient questionnaire entered by Precious Handy. I have reviewed and concur with the information entered by Precious Handy. This document represents the service I personally performed and the decisions made by me, Pam Arias ARNP. History of Present Illness Service Date and Time: 01/17/2021 1522 Previous diagnosis: Very Severe, Obstructive Sleep Apnea-Hypopnea Syndrome AHI: 78.7 (in 2019) Reason for follow up: one month Equipment type: CPAP Equipment obtained from: [employer] (getting supplies as needed) Mask style: Nasal Backup mask available: Yes (old mask) Last cushion change: last week Prior sleep studies: Yes Year and Where: 2018 and 2008 - [facility] HPI additional information: NAHUM CARRION was diagnosed to have very severe, AHI 78.7, obstructive sleep apnea-hypopnea syndrome and returned today for CPAP therapy one month follow-up. CPAP Compliance Data - Data Reviewed with Patient Average duration of nightly device use: 7 hr 42 min Compliance rate %: 97 Current pressure setting (cmH2O): 6-10 Humidity settin Average residual AHI: 4.1 Subjective Patient concerns: denies: aerophagia, mask discomfort, air blowing in eyes, mask leak noise, condensation in mask/hose, nasal congestion, dry mouth, nose, throat, epistaxis, other Observed to snore while using device: No Current pressure setting perceived as: comfortable On therapy, patient: reports: sleeping better, awakening more refreshed, being more awake and alert during the day, more rested overall. denies: drowsiness while driving Initial [place] Sleepiness Scale score: 17 (in 2008)(13 in 2018) Current [place] Sleepiness Scale score: 8 Allergies and Home Medications Home medication list reviewed: Yes (no changes) Review of Systems Review of systems same as previous: Yes (no changes) Physical Exam Heart Rate: 89 O2 Saturation: 99 Height: 5 ft 4 in Weight: 187 lb Body Mass Index: 32.1 BMI Classification: Obese Impression and Plan 1. Obstructive Sleep Apnea-Hypopnea Syndrome, very severe, with good treatment c ompliance and good apnea control. On CPAP therapy, the patient has better sleep quality and is more rested overall. 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 She has not had any issues or concerns with her CPAP use. She does get a little dry skin under her nose but it is not painful. She has been able to bring her compliance up since her last visit. I will have her follow up in 3 months. Patient's apnea severity and rationale for treatment to reduce apnea, improve sleep quality and reduce cardiovascular and cerebrovascular events was reviewed. I also reviewed the benefit of consistent device use of CPAP for gastric reflux, depression, anxiety and fibromyalgia. * Continue autoCPAP pressure at 6-10 cmH2O * Notify me if snoring with mask or feeling that the pressure is too much or too little * Attempt to lose weight * Call this office if any problems using CPAP * Return for follow up in 3 months, or sooner if concerns arise Counseling Topics: Spare mask, Weight loss health impact Time Spent with Patient (minutes): 12
== END 2021-01-17 15:23 | disposition home or self-care (01) ==
LOC: SC 15:22
PROVIDERS: ATTEND Nurse Practitioner Family
DX: G47.33 Obstructive sleep apnea (adult) (pediatric) (principal); E66.9 Obesity, unspecified; Z68.32 Body mass index [BMI] 32.0-32.9, adult
CPT/HCPCS: 99212

== ENCOUNTER 2021-04-22 14:36 | Outpatient (CLI) | payer OTHER ==
--- NOTE | 2021-04-22 15:17 | SLEEP CARE CONSULTATION ---
Information from patient questionnaire entered by Precious Handy. I have reviewed and concur with the information entered by Prceious Handy. This document represents the service I personally performed and the decisions made by , Pam Arias ARNP. History of Present Illness Service Date and Time: 04/22/2021 1436 Previous diagnosis: Very Severe, Obstructive Sleep Apnea-Hypopnea Syndrome AHI: 78.7 (in 2019) Reason for follow up: three month Equipment type: CPAP Equipment obtained from: [email or web address] (getting supplies as needed) Mask style: Nasal Backup mask available: Yes (old mask) Last cushion change: last weekend Prior sleep studies: Yes Year and Where: 2018 and 2008 - [facility] Type of Sleep Study: Polysomnography HPI additional information: NAHUM CARRION was diagnosed to have very severe, AHI 78.7, obstructive sleep apnea-hypopnea syndrome and returned today for CPAP therapy three month follow- up. CPAP Compliance Data - Data Reviewed with Patient Average duration of nightly device use: 7 hr 12 min Compliance rate %: 74 (90 days) Current pressure setting (cmH2O): 6-10 Humidity settin Average residual AHI: 4.4 Subjective Patient concerns: denies: aerophagia, mask discomfort, air blowing in eyes, mask leak noise, condensation in mask/hose, nasal congestion, dry mouth, nose, throat, epistaxis, other Observed to snore while using device: No Current pressure setting perceived as: comfortable On therapy, patient: reports: sleeping better, awakening more refreshed, being more awake and alert during the day, more rested overall. denies: drowsiness while driving Initial [place] Sleepiness Scale score: 17 (in 2008)(13 in 2019) Current [place] Sleepiness Scale score: 8 Allergies and Home Medications Home medication list reviewed: Yes (no changes) Review of Systems Review of systems same as previous: No (scheduled for skin removal surgery next month) Physical Exam Heart Rate: 76 O2 Saturation: 99 Height: 5 ft 4 in Weight: 191 lb Weight change since last visit: 4 pound gain Body Mass Index: 32.8 BMI Classification: Obese Impression and Plan 1. Obstructive Sleep Apnea-Hypopnea Syndrome, very severe, with fair treatment compliance and good apnea control. On CPAP therapy, the patient has better sleep quality and is more rested overall.Patient is very satisfied with current therapy and pressure is comfortable. She has no complaints with CPAP use and is seeing good results. Patient's apnea severity and rationale for treatment to reduce apnea, improve sleep quality and reduce cardiovascular and cerebrovascular events was reviewed. I also reviewed the benefit of consistent device use of CPAP for gastric reflux, depression, anxiety and fibromyalgia. Patient was encouraged to lose weight for their overall health and to reduce apneas. * Continue auto CPAP pressure at 6-10 cmH2O * Notify me if snoring with mask or feeling that the pressure is too much or too little * Attempt to lose weight * Call this office if any problems using CPAP * Return for follow up in 6 months, or sooner if concerns arise Counseling Topics: Spare mask, Weight loss health impact Visit Type: In Office Time Spent with Patient (minutes): 10 Provider Statement: I spent 100% of the Face to Face Visit with the patient with greater than 50% spent counseling the patient and coordination of care.
== END 2021-04-22 14:37 | disposition home or self-care (01) ==
LOC: SC 14:36
PROVIDERS: ATTEND Nurse Practitioner Family
DX: G47.33 Obstructive sleep apnea (adult) (pediatric) (principal); E66.9 Obesity, unspecified; Z68.32 Body mass index [BMI] 32.0-32.9, adult
CPT/HCPCS: 99212

== ENCOUNTER 2022-01-30 15:04 | Outpatient (CLI) | payer OTHER ==
[2022-01-30 15:37] VITALS: BP 134/93
--- NOTE | 2022-01-30 15:37 | SLEEP CARE CONSULTATION ---
Information from patient questionnaire entered by Kylee Franco MA. I have reviewed and concur with the information entered by Kylee Franco MA. This document represents the service I personally performed and the decisions made by , Pam Arias ARNP. History of Present Illness Service Date and Time: 01/30/2022 1504 Previous diagnosis: Very Severe, Obstructive Sleep Apnea-Hypopnea Syndrome AHI: 78.7 (in 2018) Reason for follow up: six month (LAST SEEN 04/22/2021, RESMED, 09/27/2019,) Equipment type: CPAP Equipment obtained from: Other (getting supplies as needed) Mask style: Nasal Mask brand: [employer] Backup mask available: Yes (old mask) Last cushion change: 2-3 weeks Prior sleep studies: Yes Year and Where: 2018 and 2008 - [facility] Type of Sleep Study: Polysomnography HPI additional information: NAHUM CARRION was diagnosed to have very severe, AHI 78.7, obstructive sleep apnea-hypopnea syndrome and returned today for CPAP therapy six month follow-up. Sleep Study - Results Type of Sleep Study: Polysomnography Prior sleep studies: Yes Year and Where: 2018 and 2008 - [facility] CPAP Compliance Data - Data Reviewed with Patient Average duration of nightly device use: 7 HOURS 51 MINUTES Compliance rate %: 71 (09/30/2021-01/28/2022; 94/120 usage) Current pressure setting (cmH2O): 6-10 Average residual AHI: 4.7 Central apnea: 3.3 Obstructive apnea: 1.0 Hypopnea: .3 Average large leak: 5.3 Subjective Missed days of use due to: reports: illness, travel Patient concerns: denies: aerophagia, mask discomfort, air blowing in eyes, mask leak noise, condensation in mask/hose, nasal congestion, dry mouth, nose, throat, epistaxis, other Observed to snore while using device: No Current pressure setting perceived as: comfortable On therapy, patient: reports: sleeping better, awakening more refreshed, being more awake and alert during the day, more rested overall. denies: drowsiness while driving Initial [place] Sleepiness Scale score: 17 (in 2008)(13 in 2018) Current [place] Sleepiness Scale score: 5 (01/30/2022) Allergies and Home Medications Drug allergies reviewed: Yes (see those listed in chart) Home medication list reviewed: Yes (no changes) Allergy and home medication list: Allergies acetaminophen [From Tylox] Allergy (Verified 04/05/20 20:39) Hives oxycodone HCl * [From Tylox] Allergy (Verified 04/05/20 20:39) Hives clarithromycin [From Biaxin] Adverse Reaction (Verified 04/05/20 20:39) Headache Review of Systems Review of systems same as previous: Yes (no changes) Physical Exam Vital signs obtained and entered by: Anne FRANCO CMA AAALVARADO Blood Pressure: 134/93 (RESP 18, PULSE 70, RIGHT, ) Cuff size: wrist Heart Rate: 72 O2 Saturation: 99 (N95) Height: 5 ft 4 in Weight: 199 lb (CLOTHES) Weight change since last visit: DIET AND EXCER. LOST 90 LB; gained 30 lbs; trying to lose again Body Mass Index: 34.1 BMI Classification: Obese Impression and Plan 1. Obstructive Sleep Apnea-Hypopnea Syndrome, very severe, with good treatment compliance and good apnea control. On CPAP therapy, the patient has better sleep quality and is more rested overall. Patient denies problems with oral dryness, nasal congestion, epistaxis, skin irritation or aerophagia. Patient's apnea severity and rationale for treatment to reduce apnea, improve sleep quality and reduce cardiovascular and cerebrovascular events was reviewed. I also reviewed the benefit of consistent device use of CPAP for gastric reflux, depression, anxiety and fibromyalgia. 2. Obesity, unspecified. Currently patients BMI is 34.1. She lost 90 lbs as of May. She recently had surgery to removed excess skin. She has since gained about 30 lbs back but is trying to eat healthy and exercise regularly to lose weight. Obesity increases the risk of apnea, CPAP pressure requirements and overall health risks especially cardiovascular and diabetes. Thus patient is advised to continue to try to lose weight. The patient's CPAP pressure range should accommodate some weight loss. Symptoms to report for additional pressure adjustment discussed. * Continue auto CPAP pressure at 6-10 cmH2O * Notify me if snoring with mask or feeling that the pressure is too much or too little * Continue to try to lose weight * Call this office if any problems using CPAP * Return for follow up in 1 year, or sooner if concerns arise Counseling Topics: Spare mask, Weight loss health impact Visit Type: In Office Time Spent with Patient (minutes): 12 Provider Statement: I spent 100% of the Face to Face Visit with the patient with greater than 50% spent counseling the patient and coordination of care.
== END 2022-01-30 15:05 | disposition home or self-care (01) ==
LOC: SC 15:04
PROVIDERS: ATTEND Nurse Practitioner Family
DX: G47.33 Obstructive sleep apnea (adult) (pediatric) (principal); E66.9 Obesity, unspecified; Z68.34 Body mass index [BMI] 34.0-34.9, adult
CPT/HCPCS: 99212

== ENCOUNTER 2022-06-15 08:00 | Outpatient (CLI) | payer OTHER ==
[2022-06-15 21:56] LABS: SARS-CoV-2 -RESP PCR PANEL NOT DETECTED
[2022-06-15 21:57] LABS: INFLUENZA A H3- RESP PCR PANEL DETECTED; INFLUENZA B - RESP PCR PANEL NOT DETECTED; RSV- RESP PCR PANEL NOT DETECTED
== END 2022-06-15 23:59 | disposition home or self-care (01) ==
LOC: LAB.N 08:00
PROVIDERS: ATTEND Registered Nurse
DX: J06.9 Acute upper respiratory infection, unspecified (principal); Z20.822 Contact with and (suspected) exposure to COVID-19
CPT/HCPCS: 87637

== ENCOUNTER 2022-10-05 14:49 | Outpatient (CLI) | payer OTHER ==
--- NOTE | 2022-10-05 15:17 | XRAY Report ---
PROCEDURE: Chest 2 View X-Ray INDICATIONS: ASTHMA TECHNIQUE: 2 views of the chest were acquired. COMPARISON: None. FINDINGS: Surgical changes and devices: Right upper quadrant cholecystectomy clips. Lungs and pleura: No pleural effusions or pneumothorax. Lungs are clear. Mediastinum: Mediastinal contours are normal. Heart size is normal. Bones and chest wall: No suspicious bony abnormalities. Soft tissues appear unremarkable. IMPRESSION: No acute cardiopulmonary abnormality. Reviewed by: Arnoldo Lopez MD on 10/05/2022 3:16 PM PST Approved by: Arnoldo Lopez MD on 10/05/2022 3:16 PM PST Station ID: [id number]
== END 2022-10-05 14:50 | disposition home or self-care (01) ==
LOC: DI 14:49
PROVIDERS: ATTEND Family Medicine
DX: J45.901 Unspecified asthma with (acute) exacerbation (principal)

== ENCOUNTER 2022-10-06 17:03 | Emergency (ER) | payer OTHER ==
[2022-10-06] MEDS ORDERED: IPRATROPIUM/ALBUTEROL 3 ML NEB INH STA (17:15)
[2022-10-06] MEDS ORDERED: ALBUTEROL NEB 2.5 MG/3 ML INH STA ×2 (17:18→18:42)
--- NOTE | 2022-10-06 17:18 | ED Physician Documentation ---
History of Present Illness - Stated complaint Stated Complaint: ASTHMA ATTACK - Chief complaint Chief Complaint: Resp - History obtained from History obtained from: Patient - History of Present Illness Timing: Today Pain level max: 0 Pain level now: 0 - Additonal information Additional information: 47-year-old female presents to the emergency department with a cough and increased work of breathing today. Has a history of asthma. She was seen at the walk-in clinic yesterday and given an albuterol inhaler. She states increased work of breathing continues today. Patient states that she is allergic to prednisone. Causes hallucinations. Review of Systems Constitutional: denies: Fever, Chills Nose: reports: Rhinorrhea / runny nose, Congestion Respiratory: reports: Cough GI: denies: Abdominal Pain, Vomiting, Diarrhea Skin: denies: Rash Musculoskeletal: denies: Neck pain, Back pain Neurologic: denies: Headache PD PAST MEDICAL HISTORY - Past Medical History Cardiovascular: None Respiratory: Asthma Neuro: None Endocrine/Autoimmune: None GI: GERD MEDICAL COLLECTIONS REPRESENTATIVE: None : None HEENT: None Psych: None Musculoskeletal: Fibromyalgia Derm: None - Past Surgical History Past Surgical History: Yes General: Cholecystectomy /MEDICAL COLLECTIONS REPRESENTATIVE: section, Other - Present Medications Home Medications: Ambulatory Orders Medication Instructions Recorded Confirmed Loratadine [Claritin] 10 mg PO DAILY 08/11/15 10/06/22 Montelukast Sodium [Singulair] 10 mg PO DAILY 08/11/15 10/06/22 Sertraline HCl [Zoloft] 50 mg PO DAILY 08/11/15 10/06/22 Esomeprazole Magnesium [Nexium 20 mg PO DAILY 10/06/22 10/06/22 24Hr] - Allergies Allergies/Adverse Reactions: Allergies Allergy/AdvReac Type Severity Reaction Status Date / Time acetaminophen [From Tylox] Allergy Hives Verified 10/06/22 17:14 oxycodone HCl * [From Tylox] Allergy Hives Verified 10/06/22 17:14 prednisone Allergy Unknown Verified 10/06/22 17:15 clarithromycin [From Biaxin] AdvReac Headache Verified 10/06/22 17:14 - Social History Does the pt smoke?: No Smoking Status: Never smoker Does the pt drink ETOH?: No - Immunizations Immunizations are current?: Yes - POLST Patient has POLST: No PD ED PE NORMAL - Vitals Vital signs reviewed: Yes - General General: Alert and oriented X 3, No acute distress - HEENT HEENT: Moist mucous membranes - Neck Neck: Supple, no meningeal sign - Cardiac Cardiac: RRR, Strong equal pulses - Respiratory Respiratory: Other (Moderate respiratory distress. Diminished breath sounds bilaterally. Wheezing.) - Abdomen Abdomen: Soft, Non tender, Non distended - Derm Derm: Warm and dry - Extremities Extremities: No edema, No calf tenderness / cord - Neuro Neuro: Alert and oriented X 3 - Psych Psych: Normal mood, Normal affect Results - Vitals Vitals: Vital Signs - 24 hr 10/06/22 10/06/22 10/06/22 17:11 17:22 17:48 Temperature 37.0 C Heart Rate 101 H 101 H 101 H Respiratory 22 20 20 Rate Blood Pressure 168/83 H 140/71 H O2 Saturation 98 95 10/06/22 10/06/22 10/06/22 18:42 19:06 19:08 Temperature Heart Rate 101 H 93 98 Respiratory 18 21 Rate Blood Pressure 127/62 134/73 H O2 Saturation 99 100 10/06/22 10/06/22 19:24 19:58 Temperature 36.9 C Heart Rate 104 H 95 Respiratory 16 18 Rate Blood Pressure 134/73 H 132/57 H O2 Saturation 97 97 Oxygen O2 Source Room air - EKG (time done) 1815 Rate: Rate (enter#) (57) Rhythm: NSR Mona: Normal Intervals: Normal UT QRS: Normal Ischemia: ST elevation c/w repol, T wave inversion (III, aVF) Compare to prior EKG: Old EKG unavailable - Labs Labs: Laboratory Tests 10/06/22 18:45 Nasal Adenovirus (PCR) NOT DETECTED Nasal B. parapertussis DNA (PCR) NOT DETECTED Nasal Coronavir 229E PCR NOT DETECTED Nasal Coronavir HKU1 PCR NOT DETECTED Nasal Coronavir NL63 PCR NOT DETECTED Nasal Coronavir OC43 PCR NOT DETECTED Nasal Enterovir/Rhinovir PCR NOT DETECTED Nasal Influenza B PCR NOT DETECTED Nasal Influenza A PCR NOT DETECTED Nasal Parainfluen 1 PCR NOT DETECTED Nasal Parainfluen 2 PCR NOT DETECTED Nasal Parainfluen 3 PCR NOT DETECTED Nasal Parainfluen 4 PCR NOT DETECTED Nasal RSV (PCR) NOT DETECTED Nasal B.pertussis DNA PCR NOT DETECTED Nasal C.pneumoniae (PCR) NOT DETECTED Yariel Human Metapneumo PCR NOT DETECTED Nasal M.pneumoniae (PCR) NOT DETECTED Nasal SARS-CoV-2 (PCR) NOT DETECTED PD Medical Decision Making - ED course Complexity details: reviewed results, re-evaluated patient, considered differential, d/w patient ED course: Patient had a chest x-ray yesterday. No acute findings. She was given dexamethasone here. Also given several breathing treatments. Respiratory distress resolved. No hypoxia. No further wheezing. No stridor. She was also given spacer teaching to use with her albuterol. We will have her follow-up with her doctor for further care. Respiratory PCR is negative. Patient counseled regarding signs and symptoms for which I believe and urgent re- evaluation would be necessary. Patient with good understanding of and agreement to plan and is comfortable going home at this time This document was made in part using voice recognition software. While efforts are made to proofread this document, sound alike and grammatical errors may occur. Departure - Departure Disposition: 01 Home, Self Care Clinical Impression: Asthma exacerbation Qualifiers: Asthma severity: unspecified severity Asthma persistence: unspecified Qualified Code(s): J45.901 - Unspecified asthma with (acute) exacerbation Condition: Good Instructions: ED Reactive Airway Disease Follow-Up: MERLY ALAMO PA [Primary Care Provider] - Within 1 week Comments: You were given dexamethasone tonight. Your respiratory panel and chest x-ray do not show any acute abnormalities. Please follow-up with your doctor for further care. Return if you worsen. Please continue your albuterol inhaler with the spacer as directed tonight Discharge Date/Time: 10/06/22 20:23
[2022-10-06] MEDS ORDERED: DEXAMETHASONE 10 MG/ML VIAL PO STA (17:42)
[2022-10-06 19:45] LABS: B. PARAPERTUSSIS- RESP PCR PAN NOT DETECTED; B. PERTUSSIS- RESP PCR PANEL NOT DETECTED; C. PNEUMONIAE- RESP PCR PANEL NOT DETECTED; CORONAVIRUS 229E-RESP PCR NOT DETECTED; CORONAVIRUS HKU1-RESP PCR NOT DETECTED; CORONAVIRUS NL63-RESP PCR NOT DETECTED; CORONAVIRUS OC43-RESP PCR NOT DETECTED; HUMAN METAPNEUMOVIRUS NOT DETECTED; INFLUENZA A- RESP PCR PANEL NOT DETECTED; INFLUENZA B - RESP PCR PANEL NOT DETECTED; M. PNEUMONIAE- RESP PCR PANEL NOT DETECTED; PARAINFLUENZA VIRUS 1 NOT DETECTED; PARAINFLUENZA VIRUS 2 NOT DETECTED; PARAINFLUENZA VIRUS 3 NOT DETECTED; PARAINFLUENZA VIRUS 4 NOT DETECTED; RHINOVIRUS/ENTEROVIRUS NOT DETECTED; RSV- RESP PCR PANEL NOT DETECTED; SARS-CoV-2 -RESP PCR PANEL NOT DETECTED
[2022-10-06 20:00] VITALS: BP 132/57
== END 2022-10-06 20:23 | disposition home or self-care (01) ==
LOC: ED 17:03
DX: J45.901 Unspecified asthma with (acute) exacerbation (principal); Z20.822 Contact with and (suspected) exposure to COVID-19; Z79.899 Other long term (current) drug therapy
CPT/HCPCS: 87633; 94640; 94664; 99284; 99285

== ENCOUNTER 2023-01-28 14:28 | Outpatient (CLI) | payer OTHER ==
--- NOTE | 2023-01-28 14:54 | SLEEP CARE CONSULTATION ---
Information from patient questionnaire entered by Philippe Duron. I have reviewed and concur with the information entered by Philippe Duron. This document represents the service I personally performed and the decisions made by , Pam Arias ARNP. History of Present Illness Service Date and Time: 01/28/2023 1428 Previous diagnosis: Very Severe, Obstructive Sleep Apnea-Hypopnea Syndrome AHI: 78.7 (in 2019) Reason for follow up: annual (Last seen 01/2022) Equipment type: CPAP (Resmed Airsense 10, 09/2019) Equipment obtained from: [employer] (getting supplies as needed) Mask style: Nasal Backup mask available: Yes (old mask) Last cushion change: 3 weeks [facility]: Yes [facility] Type of Sleep Study: Polysomnography HPI additional information: NAHUM CARRION was diagnosed to have very severe, AHI 78.7, obstructive sleep apnea-hypopnea syndrome and returned today for CPAP therapy annual follow-up. Sleep Study - Results Type of Sleep Study: Polysomnography Prior sleep studies: Yes Year and Where[facility] CP[facility] Compliance Data - Data Reviewed with Patient Average duration of nightly device use: 8 hours 8 minutes Compliance rate %: 88 (170/180 days used) Current pressure setting (cmH2O): 6-10 Average residual AHI: 5.6 Central apnea: 3.1 Obstructive apnea: 1.8 Average large leak: 0.3 lpm Subjective Missed days of use due to: reports: illness (asthma flare), travel (camping) Patient concerns: denies: aerophagia, mask discomfort, air blowing in eyes, mask leak noise, condensation in mask/hose, nasal congestion, dry mouth, nose, throat, epistaxis Observed to snore while using device: No Current pressure setting perceived as: comfortable On therapy, patient: reports: sleeping better, awakening more refreshed, being more awake and alert during the day, more rested overall. denies: drowsiness while driving Initial [place] Sleepiness Scale score: 17 (in 2008)(13 in 2018) Current [place] Sleepiness Scale score: 7 Allergies and Home Medications Known drug allergies: Yes (as listed) Drug allergies reviewed: Yes Home medication list reviewed: Yes (Advair for asthma) Allergy and home medication list: Allergies acetaminophen [From Tylox] Allergy Hives oxycodone HCl * [From Tylox] Allergy Hives prednisone Allergy Unknown clarithromycin [From Biaxin] Adverse Reaction Headache Review of Systems Review of systems same as previous: Yes (no changes) Physical Exam Vital signs obtained and entered by: Pam Whitaker NP Blood Pressure: 128/80 Cuff size: wrist (right) Heart Rate: 78 O2 Saturation: 98 Height: 5 ft 4 in Weight: 231 lb Body Mass Index: 39.6 BMI Classification: Obese Impression and Plan 1. Obstructive Sleep Apnea-Hypopnea Syndrome, very severe, with good treatment compliance and fair apnea control with minimally elevated residual AHI. On CPAP therapy, the patient has better sleep quality and is more rested overall. Patient has significant improvement of their sleep apnea and is satisfied with current CPAP therapy. The patients pressure will be changed to autoCPAP 6-11 cmH20 for elevation of residual AHI. Patient advised to contact me if pressure change is uncomfortable so that it can be adjusted. Goals for apnea control di scussed. Patient denies problems with oral dryness, nasal congestion, epistaxis, skin irritation or aerophagia. Patient's apnea severity and rationale for treatment to reduce apnea, improve sleep quality and reduce cardiovascular and cerebrovascular events was reviewed. I also reviewed the benefit of consistent device use of CPAP for gastric reflux, depression/anxiety and fibromyalgia. 2. Obesity, unspecified. Currently patients BMI is 39.6. Obesity increases the risk of apnea, CPAP pressure requirements and overall health risks especially cardiovascular and diabetes. Thus patient is advised to lose weight. * Change auto CPAP pressure to 6-11 cmH2O * Update supplies prescription * Notify me if snoring with mask or feeling that the pressure is too much or too little * Attempt to lose weight * Call this office if any problems using CPAP * Return for follow up in 1 year, or sooner if concerns arise Counseling Topics: Spare mask, Weight loss health impact Visit Type: In Office Time Spent with Patient (minutes): 15 Provider Statement: I spent 100% of the Face to Face Visit with the patient with greater than 50% spent counseling the patient and coordination of care.
[2023-01-28 14:55] VITALS: BP 128/80
== END 2023-01-28 14:29 | disposition home or self-care (01) ==
LOC: SC 14:28
PROVIDERS: ATTEND Nurse Practitioner Family
DX: G47.33 Obstructive sleep apnea (adult) (pediatric) (principal); E66.9 Obesity, unspecified; Z68.39 Body mass index [BMI] 39.0-39.9, adult
CPT/HCPCS: 99212; 99213